=== PATIENT | male | born 2000 | race Caucasian/White ===

== ENCOUNTER 2020-08-25 12:17 | Emergency (ER) | payer OTHER ==
--- NOTE | 2020-08-25 13:36 | RAD REPORT ---
EXAM DESCRIPTION: Johnathon Single View08/25/2020 1:04 pm CLINICAL HISTORY: Fever COMPARISON: none FINDINGS: The lungs are mildly to moderately hyperaerated The lungs appear clear of acute infiltrate. The heart is normal size IMPRESSION: Hyperaerated lungs without visualization acute abnormality
[2020-08-25 13:55] LABS: SARS-COV-2 RT PCR NEGATIVE (NEGATIVE)
--- NOTE | 2020-08-25 14:00 | EDPHYS ---
Physician Documentation [facility] Name: Jamari Ying Age: 20 yrs Sex: Male : 2000 Arrival Date: 08/25/2020 Time: 12:20 Bed 10 Private MD: ED Physician Vern Newsome HPI: 08/25 13:23 This 20 yrs old Male presents to ER via Ambulatory with complaints of Cold kb Symptoms. 13:23 The patient has not experienced similar symptoms in the past. The patient has not kb recently seen a physician. 13:24 The patient or guardian reports cough, flu symptoms, low-grade fever, myalgias. Onset: kb The symptoms/episode began/occurred 7 day(s) ago. Severity of symptoms: At their worst the symptoms were moderate, in the emergency department the symptoms are unchanged. Modifying factors: The symptoms are alleviated by nothing, the symptoms are aggravated by nothing. Associated signs and symptoms: Pertinent positives: fever, rhinorrhea, sore throat. Mother states pt has had cough, congestion, sore throat since Saturday. Negative covid test on Saturday. Hasn't had fever since Saturday. Now sibling has similar symptoms.. Historical: - Allergies: 12:43 No Known Allergies; tw2 - Home Meds: 12:43 None [Active]; tw2 - PMHx: 12:43 premie, born at 22 weeks; austism; tw2 - PSHx: 12:43 g-button; trachostomy, and reversal of trach; Hernia repair; hypospadias; tw2 - Immunization history:: Adult Immunizations. - Social history:: Smoking status: . ROS: 13:23 Constitutional: Negative for fever, chills, and weight loss, Cardiovascular: Negative kb for chest pain, palpitations, and edema, Abdomen/GI: Negative for abdominal pain, nausea, vomiting, diarrhea, and constipation, MS/Extremity: Negative for injury and deformity, Skin: Negative for injury, rash, and discoloration, Neuro: Negative for headache, weakness, numbness, tingling, and seizure. 13:23 Constitutional: Positive for fever. 13:23 ENT: Positive for rhinorrhea, sinus congestion, sore throat. 13:23 Respiratory: Positive for cough, Negative for dyspnea on exertion, hemoptysis, orthopnea, pleurisy, shortness of breath, sputum production, wheezing. Exam: 13:23 Constitutional: This is a well developed, well nourished patient who is awake, alert, kb and in no acute distress. Head/Face: Normocephalic, atraumatic. ENT: Nares patent. No nasal discharge, no septal abnormalities noted. Tympanic membranes are normal and external auditory canals are clear. Oropharynx with no redness, swelling, or masses, exudates, or evidence of obstruction, uvula midline. Mucous membranes moist. Chest/axilla: Normal chest wall appearance and motion. Nontender with no deformity. No lesions are appreciated. Cardiovascular: Regular rate and rhythm with a normal S1 and S2. No gallops, murmurs, or rubs. Normal PMI, no JVD. No pulse deficits. Respiratory: Lungs have equal breath sounds bilaterally, clear to auscultation and percussion. No rales, rhonchi or wheezes noted. No increased work of breathing, no retractions or nasal flaring. Skin: Warm, dry with normal turgor. Normal color with no rashes, no lesions, and no evidence of cellulitis. MS/ Extremity: Pulses equal, no cyanosis. Neurovascular intact. Full, normal range of motion. Vital Signs: 12:39 BP 104 / 82; Pulse 87; Resp 17; Temp 98.2(TE); Pulse Ox 97% on R/A; Weight 40.82 kg tw2 (R); Height 5 ft. 8 in. (172.72 cm) (R); 12:39 Body Mass Index 13.68 (40.82 kg, 172.72 cm) tw2 MDM: 12:26 Patient medically screened. kb 13:22 Data reviewed: vital signs, nurses notes. Data interpreted: Pulse oximetry: on room air kb is 97 %. Interpretation: normal. Counseling: I had a detailed discussion with the patient and/or guardian regarding: the historical points, exam findings, and any diagnostic results supporting the discharge/admit diagnosis, lab results, radiology results, the need for outpatient follow up, a family practitioner, to return to the emergency department if symptoms worsen or persist or if there are any questions or concerns that arise at home. 08/25 12:30 Order name: Strep; Complete Time: 13:21 kb 08/25 12:30 Order name: Chest Single View XRAY; Complete Time: 13:39 kb 08/25 13:21 Order name: Throat Culture EDDE 08/25 13:56 Order name: COVID-19/FLU A+B; Complete Time: 13:58 EDDE Administered Medications: No medications were administered Disposition: 15:30 Co-signature as Attending Physician, Vern Newsome MD I agree with the assessment and kdr plan of care. Disposition: 08/25/20 13:59 Discharged to Home. Impression: Acute upper respiratory infection, unspecified. - Condition is Stable. - Discharge Instructions: Upper Respiratory Infection, Adult, Isno-uy-Waej, Viral Respiratory Infection, Rwdf-Dk-Vsmc. - Medication Reconciliation Form, Thank You Letter, Antibiotic Education, Prescription Opioid Use form. - Follow up: Emergency Department; When: As needed; Reason: Worsening of condition. Follow up: Private Physician; When: 2 - 3 days; Reason: Recheck today's complaints, Continuance of care, Re-evaluation by your physician. Signatures: Dispatcher [employer] EDDE Wanda Piña, POLE CUTTER-C POLE CUTTER-Ckb Vern Newsome MD MD [facility] Stacie Gregory, RN RN aa5 Rebecca Rubio RN RN tw2 Corrections: (The following items were deleted from the chart) 13:07 12:31 CORONAVIRUS+MR.LAB.BRZ ordered. [facility] EDDE 13:10 12:31 Influenza Screen (A \T\ B)+BA.LAB.BRZ ordered. [facility] EDDE 14:29 13:59 08/25/2020 13:59 Discharged to Home. Impression: Acute upper respiratory aa5 infection, unspecified. Condition is Stable. Forms are Medication Reconciliation Form, Thank You Letter, Antibiotic Education, Prescription Opioid Use. Follow up: Emergency Department; When: As needed; Reason: Worsening of condition. Follow up: Private Physician; When: 2 - 3 days; Reason: Recheck today's complaints, Continuance of care, Re-evaluation by your physician. kb
--- NOTE | 2020-08-25 14:00 | ER ---
Nurse's Notes [facility] Name: Jamari Ying Age: 20 yrs Sex: Male : 2000 Arrival Date: 08/25/2020 Time: 12:20 Bed 10 Private MD: Diagnosis: Acute upper respiratory infection, unspecified Presentation: 08/25 12:39 Chief complaint: Parent and/or Guardian states: he has had fever since Saturday morning tw2 but had cough runny nose and sinus congestion since saturday. Coronavirus screen: fever, runny nose, Client presents with at least one sign or symptom that may indicate coronavirus-19. Standard/surgical mask placed on the client. Provider contacted for isolation considerations. Ebola Screen: Patient denies travel to an Ebola-affected area in the 21 days before illness onset. Initial Sepsis Screen: Does the patient meet any 2 criteria? No. Patient's initial sepsis screen is negative. Does the patient have a suspected source of infection? No. Patient's initial sepsis screen is negative. Risk Assessment: Do you want to hurt yourself or someone else? Patient reports no desire to harm self or others. Onset of symptoms was August 25, 2020. 12:39 Method Of Arrival: Ambulatory tw2 12:39 Acuity: MARIA D 4 tw2 Triage Assessment: 12:39 General: Appears in no apparent distress. slender, well groomed, Behavior is tw2 cooperative. Pain: Denies pain. EENT: Parent/caregiver reports the patient having nasal congestion nasal discharge. 12:41 Respiratory: Airway is patent Respiratory effort is even, unlabored, Respiratory tw2 pattern is regular, symmetrical. Historical: - Allergies: 12:43 No Known Allergies; tw2 - Home Meds: 12:43 None [Active]; tw2 - PMHx: 12:43 premie, born at 22 weeks; austism; tw2 - PSHx: 12:43 g-button; trachostomy, and reversal of trach; Hernia repair; hypospadias; tw2 - Immunization history:: Adult Immunizations. - Social history:: Smoking status: . Screenin:41 Abuse screen: Denies threats or abuse. Nutritional screening: No deficits noted. tw2 Tuberculosis screening: No symptoms or risk factors identified. Fall Risk None identified. Assessment: 12:45 General: Appears comfortable, Behavior is calm, cooperative. Neuro: Level of aa5 Consciousness is awake, alert, obeys commands. Cardiovascular: Patient's skin is warm and dry. Respiratory: Airway is patent Respiratory effort is even, unlabored, Respiratory pattern is regular, symmetrical, Parent/caregiver reports the patient having cough. GI: No signs and/or symptoms were reported involving the gastrointestinal system. : No signs and/or symptoms were reported regarding the genitourinary system. EENT: Parent/caregiver reports the patient having nasal congestion nasal discharge that is watery. Derm: Skin is pink, warm \T\ dry. Musculoskeletal: Range of motion: intact in all extremities. 12:45 Reassessment: Pt's mother at bedside . aa5 14:25 Neuro: Level of Consciousness is awake, alert, obeys commands. Respiratory: Airway is aa5 patent Respiratory effort is even, unlabored, Respiratory pattern is regular, symmetrical. Derm: Skin is pink, warm \T\ dry. Vital Signs: 12:39 BP 104 / 82; Pulse 87; Resp 17; Temp 98.2(TE); Pulse Ox 97% on R/A; Weight 40.82 kg tw2 (R); Height 5 ft. 8 in. (172.72 cm) (R); 12:39 Body Mass Index 13.68 (40.82 kg, 172.72 cm) tw2 ED Course: 12:20 Patient arrived in ED. as 12:22 Wanda Piña FNP-C [facility]. kb 12:22 Vern Newsome MD is Attending Physician. kb 12:31 Bed in low position. Call light in reach. Adult w/ patient. tw2 12:41 Triage completed. tw2 12:41 Arm band placed on. tw2 13:04 Chest Single View XRAY In Process Unspecified. EDMS 13:26 Stacie Gregory, RN is Primary Nurse. aa5 14:25 No provider procedures requiring assistance completed. Patient did not have IV access aa5 during this emergency room visit. Administered Medications: No medications were administered Outcome: 13:59 Discharge ordered by . kb 14:25 Discharged to home ambulatory. aa5 14:25 Condition: stable 14:25 Discharge instructions given to Pt's mother Instructed on discharge instructions, follow up and referral plans. Demonstrated understanding of instructions, follow-up care. 14:29 Patient left the ED. aa5 Signatures: Dispatcher [employer] EDWanda Gonzales, ANESTHESIOLOGIST ASSISTANT CERTIFIED-C ANESTHESIOLOGIST ASSISTANT CERTIFIED-Harini Jama Audri RN RN aa5 Rebecca Rubio RN RN tw2 Corrections: (The following items were deleted from the chart) 19:47 16:34 Reassessment: Pt's mother . aa5 aa5
[2020-08-25 14:34] VITALS: BP 104/82; TEMP 98.2; O2SAT 97
== END 2020-08-25 14:29 | disposition home or self-care (01) ==
LOC: ER 12:17
DX: J06.9 Acute upper respiratory infection, unspecified (principal); Z20.822 Contact with and (suspected) exposure to COVID-19
CPT/HCPCS: 87070; 87081; 0240U; 71045; 99283

== ENCOUNTER 2020-10-27 09:17 | Emergency (ER) | payer OTHER ==
--- OUTSIDE RECORDS SUMMARY | 2020-10-27 09:20 | XMS REPORT | Continuity of Care Document ---
:2000 Author Organization [facility] t Address [address] [place] [address] Care Team Providers Name Role Phone Bruno Rueda DO Attending Clinician Doctor Unassigned, Name Attending Clinician Unavailable Lorrie GONZALEZ Attending Clinician Problems This patient has no known problems. Allergies, Adverse Reactions, Alerts This patient has no known allergies or adverse reactions. Medications This patient has no known medications. Procedures This patient has no known procedures. Encounters Start End Encounter Admission Attending Care Care Encounter Source Date/Time Date/Time Type Type Clinicians Facility Department ID 2020-09-20 2020-09-20 Patient Mohit [facility] [id number] 00:00:00 00:00:00 Outreach Luis [facility] [id number] Bruno [facility] [id number] CINTIA [id number] 2020-05-19 2020-05-19 Orders Doctor WANG [id number] 00:00:00 00:00:00 Only Unassigned, ROSMERY [id number] [facility] [id number] 2020-04-22 2020-04-22 Telephone Lorrie, [facility] [id number] 00:00:00 00:00:00 [facility] [id number] [place] [id number] [facility]io [phone] nal [facility] 2020-04-18 2020-04-18 Telephone Leliasc, [facility] [id number] 00:00:00 00:00:00 [facility] [id number] [place] [id number] Professio [phone] nal [facility] 2020-04-13 2020-04-13 Telephone Leliasc, [facility] [id number] 00:00:00 00:00:00 [facility] [id number] [place] [id number] Professio [phone] nal [facility] 2019-11-10 2019-11-10 Orders Doctor FELIPE [id number] 00:00:00 00:00:00 Only Unassigned, ROSMERY [id number] [facility] [id number] 2019-11-01 2019-11-01 Telephone [facility] [id number] 00:00:00 00:00:00 [facility] [id number] [place] [id number] Professio [phone] nal [facility] 2019-09-28 2019-09-28 Orders Doctor FELIPE [id number] 00:00:00 00:00:00 Only Unassigned, ROSMERY [id number] [facility] [id number] 2019-09-25 2019-09-25 [facility]phone [facility] [id number] 00:00:00 00:00:00 [facility] [id number] [place] [id number] Professio [phone] [place] [address] [address] 2019-09-23 2019-09-23 Oma Andrew FLANIVAL [id number] 00:00:00 00:00:00 [facility] [id number] [place] [id number] Professio [phone] [place] [address] [address] 2019-09-23 2019-09-23 [facility] [id number] 00:00:00 00:00:00 [facility] [id number] [place] [id number] Professio [phone] [place] [address] [address] [facility] 2019-09-04 2019-09-04 [facility] [id number] 00:00:00 00:00:00 [facility] [id number] [place] [id number] Professio [phone] [place] [address] [address] 2019-09-01 2019-09-01 [facility] [id number] 11:51:36 13:32:41 Visit [facility] [id number] [place] [id number] Professio [phone] [place] [address] [address] 2019-09-01 2019-09-01 Orders Doctor FELIPE [id number] 00:00:00 00:00:00 Only Unassigned, ROSMERY [id number] [place] [facility] [id number] Results This patient has no known results.
[2020-10-27 11:28] LABS: SARS-COV-2 RT PCR POSITIVE (NEGATIVE)
--- NOTE | 2020-10-27 11:33 | ER ---
Nurse's Notes [facility] Name: Jamari Ying Age: 20 yrs Sex: Male : 2000 Arrival Date: 10/27/2020 Time: 09:20 Bed 6 Private MD: Diagnosis: Coronavirus infection, unspecified Presentation: 10/27 09:28 Chief complaint: Parent and/or Guardian states: "His brother tested positive for COVID ss Saturday and he woke up with a fever today.". Coronavirus screen: Client denies travel out of the [place] in the last 14 days. Ebola Screen: Patient denies exposure to infectious person. Patient denies travel to an Ebola-affected area in the 21 days before illness onset. Initial Sepsis Screen: Does the patient meet any 2 criteria? No. Patient's initial sepsis screen is negative. Does the patient have a suspected source of infection? No. Patient's initial sepsis screen is negative. Onset of symptoms was October 27, 2020. 09:28 Method Of Arrival: Ambulatory ss 09:28 Acuity: MARIA D 4 ss Historical: - Allergies: 09:31 No Known Allergies; ss - PMHx: 09:31 austism; premie, born at 22 weeks; ss - PSHx: 09:31 g-button; trachostomy, and reversal of trach; Hernia repair; hypospadias; ss - Immunization history:: Adult Immunizations up to date. - Social history:: Smoking status: Patient denies any tobacco usage or history of. Screenin:00 Abuse screen: Denies threats or abuse. Denies injuries from another. Nutritional hb screening: No deficits noted. Tuberculosis screening: No symptoms or risk factors identified. Fall Risk None identified. Assessment: 10:00 General: Appears in no apparent distress. Behavior is calm, cooperative. Pain: Unable hb to use pain scale. FLACC scale score is 0 out of 10. Neuro: Level of Consciousness is awake, alert. Cardiovascular: Patient's skin is warm and dry. Respiratory: Respiratory effort is even, unlabored, Respiratory pattern is regular, symmetrical. GI: No signs and/or symptoms were reported involving the gastrointestinal system. : No signs and/or symptoms were reported regarding the genitourinary system. EENT: No signs and/or symptoms were reported regarding the EENT system. Derm: Skin is pink, warm \\T\\ dry. Musculoskeletal: No signs and/or symptoms reported regarding the musculoskeletal system. 11:30 Reassessment: Patient appears in no apparent distress at this time. No changes from hb previously documented assessment. Patient and/or family updated on plan of care and expected duration. Pain level reassessed. Vital Signs: 09:31 BP 111 / 81; Pulse 91; Resp 18; Temp 99.7; Pulse Ox 99% ; ss 11:30 Pulse 88; Resp 16; Pulse Ox 100% on R/A; hb ED Course: 09:20 Patient arrived in ED. mr 09:25 Wanda Piña FNP-C is [facility]. kb 09:25 Vern Newsome MD is Attending Physician. kb 09:29 Triage completed. ss 09:31 Arm band placed on right wrist. ss 09:46 Kymberly Sauer, RN is Primary Nurse. hb 10:00 Patient has correct armband on for positive identification. Bed in low position. Call hb light in reach. 11:49 No provider procedures requiring assistance completed. Patient did not have IV access hb during this emergency room visit. Administered Medications: No medications were administered Outcome: 11:33 Discharge ordered by MD. kb 11:49 Discharged to home ambulatory, with family. hb 11:49 Condition: stable 11:49 Discharge instructions given to patient, family, Instructed on discharge instructions, follow up and referral plans. medication usage, Demonstrated understanding of instructions, follow-up care, medications. 11:50 Patient left the ED. hb Signatures: Wanda Piña FNP-C FNP-Ckb Tiara Small Yoli Flynn RN RN Kymberly Sauer, JOHNNIE RN hb
--- NOTE | 2020-10-27 11:33 | EDPHYS ---
Physician Documentation [facility] Name: Jamari Ying Age: 20 yrs Sex: Male : 2000 Arrival Date: 10/27/2020 Time: 09:20 Bed 6 Private MD: ED Physician Vern Newsome HPI: 10/27 09:35 This 20 yrs old Male presents to ER via Ambulatory with complaints of Fever. kb 09:35 The patient reports fever, with an emergency department temperature of 99.7 degrees kb Fahrenheit. Onset: The symptoms/episode began/occurred this morning. Modifying factors: there are no obvious modifying factors. Associated signs and symptoms:. Severity of symptoms: At their worst the symptoms were mild in the emergency department the symptoms are unchanged. The patient has not experienced similar symptoms in the past. The patient has not recently seen a physician. Mother states pt woke up with a fever this morning. Has not had any other symptoms. States pt's brother recently tested positive. . Historical: - Allergies: 09:31 No Known Allergies; ss - PMHx: 09:31 austism; premie, born at 22 weeks; ss - PSHx: 09:31 g-button; trachostomy, and reversal of trach; Hernia repair; hypospadias; ss - Immunization history:: Adult Immunizations up to date. - Social history:: Smoking status: Patient denies any tobacco usage or history of. ROS: 09:34 Respiratory: Negative for shortness of breath, cough, wheezing, and pleuritic chest kb pain, Abdomen/GI: Negative for abdominal pain, nausea, vomiting, diarrhea, and constipation, MS/Extremity: Negative for injury and deformity, Skin: Negative for injury, rash, and discoloration. 09:34 Constitutional: Positive for fever. Exam: 09:35 Constitutional: This is a well developed, well nourished patient who is awake, alert, kb and in no acute distress. Head/Face: Normocephalic, atraumatic. Respiratory: Respirations even and unlabored. No increased work of breathing, no retractions or nasal flaring. Skin: Warm, dry with normal turgor. Normal color. MS/ Extremity: Pulses equal, no cyanosis. Neurovascular intact. Full, normal range of motion. 09:35 Neuro: Exam negative for acute changes. Vital Signs: 09:31 BP 111 / 81; Pulse 91; Resp 18; Temp 99.7; Pulse Ox 99% ; ss 11:30 Pulse 88; Resp 16; Pulse Ox 100% on R/A; hb MDM: 09:33 Patient medically screened. kb 09:34 Data reviewed: vital signs, nurses notes. Data interpreted: Pulse oximetry: on room air kb is 99 %. Interpretation: normal. 11:18 ED course: Lab reports it will be another 10 minutes for results. . kb 11:33 Counseling: I had a detailed discussion with the patient and/or guardian regarding: the kb historical points, exam findings, and any diagnostic results supporting the discharge/admit diagnosis, lab results, the need for outpatient follow up, a family practitioner, to return to the emergency department if symptoms worsen or persist or if there are any questions or concerns that arise at home. 10/27 11:28 Order name: COVID-19/FLU A+B; Complete Time: 11:28 EDMS Administered Medications: No medications were administered Disposition: 14:25 Co-signature as Attending Physician, Vern Newsome MD I agree with the assessment and kdr plan of care. Disposition: 10/27/20 11:33 Discharged to Home. Impression: Coronavirus infection, unspecified. - Condition is Stable. - Discharge Instructions: Viral Respiratory Infection, Gcdh-Fm-Cohj, COVID-19. - Medication Reconciliation Form, Thank You Letter, Antibiotic Education, Prescription Opioid Use form. - Follow up: Emergency Department; When: As needed; Reason: Worsening of condition. Follow up: Private Physician; When: 2 - 3 days; Reason: Recheck today's complaints, Continuance of care, Re-evaluation by your physician. Signatures: Dispatcher [employer] EDAL Wanda Piña, SCHOOL LUNCH MONITOR-C SCHOOL LUNCH MONITOR-Vern Lin MD MD kdr Smirch, Shelby, RN RN Kymberly Morocho, JOHNNIE RN hb Corrections: (The following items were deleted from the chart) 10:42 09:34 Influenza Screen (A \T\ B)+BA.LAB.BRZ ordered. EDAL EDMS 10:42 09:45 CORONAVIRUS+MR.LAB.BRZ ordered. EDAL EDMS 11:50 11:33 10/27/2020 11:33 Discharged to Home. Impression: Coronavirus infection, hb unspecified. Condition is Stable. Forms are Medication Reconciliation Form, Thank You Letter, Antibiotic Education, Prescription Opioid Use. Follow up: Emergency Department; When: As needed; Reason: Worsening of condition. Follow up: Private Physician; When: 2 - 3 days; Reason: Recheck today's complaints, Continuance of care, Re-evaluation by your physician. kb
[2020-10-27 11:55] VITALS: BP 111/81; TEMP 99.7
[2020-10-27 11:56] VITALS: O2SAT 100
== END 2020-10-27 11:50 | disposition home or self-care (01) ==
LOC: ER 09:17
DX: U07.1 COVID-19 (principal)
CPT/HCPCS: 0240U; 99281